=== PATIENT | male | born 1960 | race Caucasian/White ===

== ENCOUNTER → 2017-04-10 | Outpatient (CLI) | payer OTHER ==
--- NOTE | ~2017-04-10 | US5 ---
[facility] A Service of [facility] & [facility] RADIOLOGY TEXT RESULTS PATIENT: JOYCE LIMON LOCATION: [place] : 58 UNIT #: [id number] AGE: [address]: Addison Cheema MD SEX: M ORDER DR: [id number] [address] [address] [id number] O MR#: [id number] Acc #: [id number] NAME: JOYCE LIMON : 1960 SEX: M STUDY DATE/TIME: 04/10/2017 8:02 UNIT: [facility] ROOM: STUDY DESCRIPTION: US Abdominal Complete Attending Physician: Addison Cheema III, M.D. Referring Physician: Addison Cheema III, M.D. Ordering Physician: Addison Cheema III, M.D. Primary Care Physician: Addison Cheema III, M.D. MEDICAL IMAGING REPORT This report is preliminary unless electronic signature is present. EXAM Abdominal ultrasound, complete, 04/10/2017. HISTORY Hepatitis C followup, observation for hepatocellular carcinoma and cirrhosis. FINDINGS The liver demonstrates a somewhat coarsened echotexture and there may be some fatty infiltration. No cystic or solid mass lesions were seen in the liver. The intra and extrahepatic bile ducts are not dilated. The gallbladder is normal with no evidence of cholelithiasis, wall thickening, or pericholecystic fluid. The common duct measures 4 mm. The pancreas is normal. The spleen is minimally enlarged measuring 14 cm in greatest diameter. The visualized portions of the abdominal aorta and inferior vena cava are within normal limits. The kidneys are normal bilaterally. IMPRESSION 1. Coarsened liver echotexture. Possible fatty infiltration of the liver. No cystic or solid mass lesions were seen within the liver. 2. Normal gallbladder. 3. Mild splenomegaly. Dictated by... Valeriano Aguero M.D. THIS IS AN ELECTRONICALLY VERIFIED REPORT Valeriano Aguero M.D. at 04/10/2017 5:55 PM JARRETT/ashley [facility] A Service of [facility] & [facility] RADIOLOGY TEXT RESULTS PATIENT: JOYCE LIMON LOCATION: [facility] #: [id number] : 58 UNIT #: [id number] AGE: [address]: Addison Cheema MD SEX: M ORDER DR: TD: 04/10/2017 16:20 JOB #: [id number] MEDICAL IMAGING REPORT Page 1 of 1
== END | disposition home or self-care (01) ==
LOC: SGUS 07:52
DX: B18.2 Chronic viral hepatitis C (principal); R16.1 Splenomegaly, not elsewhere classified
CPT/HCPCS: 76700